=== PATIENT | female | born 1975 | race Two or more races ===

== ENCOUNTER 2024-09-17 19:15 | Emergency (ER) | payer OTHER ==
[~2024-09-17] VITALS: Ht 162.6 cm; Wt 63.5 kg
[2024-09-17] MEDS ORDERED: WELLBUTRIN XL300 MG PO (19:21)
[2024-09-17] MEDS ORDERED: TOPROL XL25 M1 PO (19:21)
[2024-09-17] MEDS ORDERED: ORPHENADRINE CITRATE 30 MG/ML AMPUL IM STA (19:45)
[2024-09-17] MEDS ORDERED: DEXAMETHASONE SODIUM PHOSPHATE 4 MG/ML VIAL IM STA (19:45)
[2024-09-17] MEDS ORDERED: KETOROLAC TROMETHAMINE 30 MG VIAL IM STA (19:46)
[2024-09-17] MEDS ORDERED: NORFLEX100MG PO (19:51)
== END 2024-09-17 20:41 | disposition home or self-care (01) ==
LOC: ER 19:17
DX: M62.838 Other muscle spasm (principal); Z88.8 Allergy status to other drugs, medicaments and biological substances